=== PATIENT | male | born 1960 | race Caucasian/White ===

== ENCOUNTER 2020-03-08 14:52 | Inpatient (IN) | payer SELFPAY ==
[2020-03-08] VITALS (13 sets, daily range): BP systolic 80–136; BP diastolic 51–86; PULSE 68–99; TEMP 98.1–98.5
[~2020-03-08] VITALS: Ht 180.3 cm; Wt 176.9 kg
[2020-03-08] MEDS ORDERED: GLUCOTROL10 MG PO (17:27)
[2020-03-08] MEDS ORDERED: PRINZIDE 25 MG-1 TAB PO (17:28)
--- NOTE | 2020-03-08 17:55 | NUR ---
Patient arrived via EMS. Patient is alert and oriented, able to answer questions appropriately. Patient is able to transfer between streacher and bed with 2x assist. Called hospitalist to report that patient is in afib. Patient off floor to OR at 1755.
[2020-03-08 17:56] LABS: INR 1.5 (0.8-3.0); PROTHROMBIN TIME 17.8 SECONDS (9.7-12.8)
[2020-03-08 17:59] LABS: PARTIAL THROMBOPLASTIN TIME 36.1 SECONDS (26.0-37.0)
[2020-03-08 20:49] LABS: MAGNESIUM 1.7 mg/dL (1.6-2.3)
[2020-03-08 21:08] LABS: TROPONIN-I < 0.012 ng/mL (0.000-0.035)
[2020-03-09] VITALS (7 sets, daily range): BP systolic 82–113; BP diastolic 40–61; PULSE 53–116; TEMP 97.6–99.1
--- NOTE | 2020-03-09 04:19 | NUR ---
Patient to the room from PACU at 1940. Noted to continue to be hypotensive. Hopsitalist aware. Heart rate continues to be irregular, but stable. Dressing noted to left lower pannus with wet to dry dressing. Telemetry in place. Echo ordered for this morning. Delsem powder to groin per orders. Groin noted to be very escoriated. Patient noted to have pain a couple times throughout the night. First pain episode was to back, left abdomen, and headache. 2mg morphine given and this was effective. 2nd pain episode was to left abdomen and 2mg morphine was given. This was effective. Patient assisted with repositioning via 2 assist from staff. Will conitnue to monitor.
--- NOTE | 2020-03-09 04:25 | NUR ---
Heparin drip orders discussed with Elinor Izquierdo APRN. She is going to address this with Dr. Soni this morning.
[2020-03-09 06:17] LABS: BASO % 0.2 % (0.0-2.0); EOS # 0.1 (0.0-0.7); GRAN # 10.2 (1.4-6.5); LYMPH # 1.2 (1.2-3.4); LYMPH % 9.5 % (20.0-51.0); MEAN CELL VOLUME 86 fl (80.0-100.0); MEAN CORPUSCULAR HGB CONC 32 g/dl (33.0-37.0); MEAN PLATELET VOLUME 9.6 fl (7.4-10.4); MONO # 1.1 (0.1-0.6); MONO % 8.7 % (1.7-9.3); PLATELET COUNT 412 K/mm3 (130-400); RED BLOOD COUNT 3.41 M/mm3 (4.20-5.60); REDCELL DISTRIBUTION WIDTH-CV 13.7 % (11.5-14.5)
[2020-03-09 06:24] LABS: HEMATOCRIT 29.3 % (42.0-52.0); HEMOGLOBIN 9.3 g/dl (13.5-18.0); MEAN CORPUSCULAR HEMOGLOBIN 27 pg (27.0-31.0)
[2020-03-09 06:39] LABS: ALBUMIN 2.4 gm/dL (3.5-5.0); BILIRUBIN,TOTAL 0.4 mg/dL (0.0-1.0); CALCIUM 8.2 mg/dL (8.4-10.2); CREATININE, serum 1.54 (0.66-1.25); TOTAL PROTEIN 5.3 gm/dL (6.4-8.2)
[2020-03-09 07:12] LABS: C-REACTIVE PROTEIN 28.5 mg/dL (0.0-0.9)
--- NOTE | 2020-03-09 08:38 | NUR ---
Dr Reinoso notified of consult.
--- NOTE | 2020-03-09 11:02 | NUR ---
Dr Hinds here to see patient, dressing changed. Wound bed pink with granulation tissue noted. Scant amount of bloody drainage. Area around wound with blisters and clear drainage noted. Right great toe with diabetic ulcer noted. Wound bed pink with no drainage noted, dressed with gauze. No c/o at this time.
--- NOTE | 2020-03-09 11:44 | NUR ---
Heparin gtt initiated at this time at 23ml/hr. Hep XA due at 1745.
--- NOTE | 2020-03-09 11:50 | NUR ---
SW met with patient via the phone. Patient reports that he resides in [facility] and has two brothers that will help support him when he gets home. Patient shares that his emergency contact and DPJIGAR CELISlizabethcharisse his brother . Patient reports that he has transportation at home. Patient reports PCP Dr. Dillard at [facility]. Patient reports that he uses a Walker daily for mobility and denies any other DME. Declined home health supports. No additional concerns identified.
--- NOTE | 2020-03-09 14:06 | NUR ---
Dr Reinoso here to see patient.
[2020-03-10 03:21] VITALS: BP 93/49; PULSE 91; TEMP 98.1
--- NOTE | 2020-03-10 05:16 | NUR ---
Patient has rested well throughout the night. PRN pain medication given at beginning of the shift and this was effective. Dressing change to left pannus completed and patient tolerated this well. Heparin drip protocol followed and rate changes verified with FERNANDO Vasquez. At 0050 patient stated he just didn't feel right, that he ached all over and was lightheaded. BP: 96/62, P: 105, T: 99.1, O2: 93%. Blood sugar checked and noted to be 127. Guillermina Mcarthur APRN notified of concerns from patient. PRN Tylenol ordered and administered. Patient then fell back to sleep. At 0320, BP: 93/49, P: 91, T: 98.1, O2: 95%. Patient has had no further complaints of lightheadedness and not feeling right. Will continue to monitor patient.
[2020-03-10 07:12] LABS: BASO % 0.4 % (0.0-2.0); EOS # 0.2 (0.0-0.7); EOS % 1.5 % (0-4.0); GRAN # 8.7 (1.4-6.5); GRAN % 77.3 % (42.2-75.2); LYMPH # 1.1 (1.2-3.4); LYMPH % 9.4 % (20.0-51.0); MEAN CELL VOLUME 87 fl (80.0-100.0); MEAN CORPUSCULAR HGB CONC 31 g/dl (33.0-37.0); MEAN PLATELET VOLUME 10.2 fl (7.4-10.4); MONO # 1.2 (0.1-0.6); MONO % 10.6 % (1.7-9.3); PLATELET COUNT 463 K/mm3 (130-400); RED BLOOD COUNT 3.67 M/mm3 (4.20-5.60); REDCELL DISTRIBUTION WIDTH-CV 13.9 % (11.5-14.5)
[2020-03-10 07:15] LABS: HEMATOCRIT 31.8 % (42.0-52.0); HEMOGLOBIN 9.7 g/dl (13.5-18.0); MEAN CORPUSCULAR HEMOGLOBIN 26 pg (27.0-31.0)
[2020-03-10 07:18] LABS: CALCIUM 8.4 mg/dL (8.4-10.2); CREATININE, serum 1.41 (0.66-1.25); MAGNESIUM 2.3 mg/dL (1.6-2.3); POTASSIUM 4.4 mmol/L (3.4-5.0)
[2020-03-10 07:40] VITALS: BP 106/62; PULSE 90; TEMP 97.3
--- NOTE | 2020-03-10 08:18 | NUR ---
Patient alert and oriented, answers questions appropriately. See assessment. Patient c/o SOA, lungs clear in upper lobes, ex/inspiratory wheezes noted in bases. +wet sounding cough, which is new for patient. Patient states "I feel weak." Assisted x2 to bedside commode, increased SOA noted with exertion. Heparin gtt continues to infuse. LLQ with dressing in place. 2+ edema noted to BLE, 1+ edema noted to BUE. C/o mild pain to LLQ incision.
--- NOTE | 2020-03-10 09:10 | NUR ---
Dr Hinds here to see patient. Dressing to Q changed per Dr Hinds, wet to dry.
--- NOTE | 2020-03-10 11:01 | NUR ---
Dr Guy here to see patient.
[2020-03-10 11:27] VITALS: BP 85/54; PULSE 90; TEMP 97.7
--- NOTE | 2020-03-10 12:02 | NUR ---
Dr Guy notified of hypotension.
--- NOTE | 2020-03-10 13:37 | NUR ---
Dr Crespo notified of consult.
[2020-03-10 15:28] VITALS: BP 96/66; PULSE 89; TEMP 97.7
--- NOTE | 2020-03-10 16:37 | NUR ---
Hep XA 0.42. Continue Heparin gtt at 24ml/hr. Recheck Hep XA at 2030, 4.26.20.
--- NOTE | 2020-03-10 19:45 | NUR ---
C/O pain to left lower abdomen-rating pain 05/24-described as throbbing-norco given per dr mccoy
--- NOTE | 2020-03-10 20:00 | NUR ---
Report received. Assumed care for retail shift manager. Assessment complete. A&Ox3-drowsy. Plan of care discussed for this shift to include pain control/dressing change/calling for needs. Dressing to left lower oenftoa-yxi-rxzxy amount of drainage noted. Right great toe with tgjwnjop-VFB-bouyj tape. IV to left wrist with heparin@25mls/hr. Infusing without s/s of redness/drainage. Right wrist INT flushes without difficulty. Denies needs. Call light in reach. Will monitor.
[2020-03-10 20:04] VITALS: BP 101/62; PULSE 93; TEMP 99
--- NOTE | 2020-03-10 23:00 | NUR ---
Dressing to left lower abdomen changed-wet to dry with normal saline/kerlix-covered with ABDx2-no tape due to skin irritation from previous tape. Tolerated well.
[2020-03-11] VITALS (7 sets, daily range): BP systolic 90–123; BP diastolic 49–69; PULSE 66–114; TEMP 97.4–98.9
--- NOTE | 2020-03-11 02:00 | NUR ---
HepXa 0.38-no change per protocol. Order placed for next HepXa @ 0800
[2020-03-11 08:24] LABS: BASO % 0.3 % (0.0-2.0); CALCIUM 8.6 mg/dL (8.4-10.2); CREATININE, serum 1.39 (0.66-1.25); EOS # 0.3 (0.0-0.7); EOS % 2.6 % (0-4.0); GRAN # 8.4 (1.4-6.5); GRAN % 76.9 % (42.2-75.2); LYMPH # 0.8 (1.2-3.4); LYMPH % 7.3 % (20.0-51.0); MEAN CELL VOLUME 85 fl (80.0-100.0); MEAN CORPUSCULAR HGB CONC 31 g/dl (33.0-37.0); MEAN PLATELET VOLUME 9.9 fl (7.4-10.4); MONO # 1.3 (0.1-0.6); PLATELET COUNT 436 K/mm3 (130-400); POTASSIUM 4.5 mmol/L (3.4-5.0); RED BLOOD COUNT 3.65 M/mm3 (4.20-5.60); REDCELL DISTRIBUTION WIDTH-CV 13.9 % (11.5-14.5)
[2020-03-11 08:26] LABS: HEMATOCRIT 31.1 % (42.0-52.0); HEMOGLOBIN 9.7 g/dl (13.5-18.0); MEAN CORPUSCULAR HEMOGLOBIN 27 pg (27.0-31.0)
--- NOTE | 2020-03-11 11:57 | NUR ---
Rcvd report from FERNANDO Decker this AM. Pt's HepXa for 0800 is 0.40, no change is made to the Heparin titration. Pt is c/o pain in the ABD. Will continue to monitor. Pt pannus ulcer cleaned and repacked. No further concerns at this time.
--- NOTE | 2020-03-11 12:27 | NUR ---
First visit from the registration officer. No needs right now.
--- NOTE | 2020-03-11 16:05 | NUR ---
The patient is self-pay. MOLLY contacted Samreen Arce, financial counselor and she states they will assist the patient with a Medicaid application. MOLLY informed the patient. Post acute rehab is being recommended for the patient. MOLLY presented Medicare.gov's list of rehab facilities near [place]. MOLLY infom The patient would like to sent referrals to [facility], [facility] and [facility]. Awaiting responses.
--- NOTE | 2020-03-11 16:47 | NUR ---
RE-EDUCATED PATIENT ON OUR CPAP. PATIENT STATES HE UNDERSTANDS AND WILL WEAR IT TONIGH WITH2L BI.
--- NOTE | 2020-03-11 20:40 | NUR ---
Report received. Assumed care for hotel night auditor. Assessment complete. VS have remained stable. Is very drowsy and states "whatever medication they gave me earlier has made my mind crazy." Refusing scheduled dose of oxycodone. Falls asleep mid sentence-easily aroused-but states an hour after taking the Hydrocodone he started feeling terrible. Encouraged to inform staff if pain is high we could adjust medications. Verbalizes understanding. Plan of care discussed for dressing change later this shift. PICC to right upper arm flushes without difficulty. New bag of heparin hung-current rate 25mls/hr-2 nurse verification with FERNANDO Ward. IS at bedside and encouraged use. Call light in reach. Will monitor.
--- NOTE | 2020-03-11 21:50 | NUR ---
HepXa 0.00. Heparin bolus-10,000 units given IV per dr mccoy. Verified FERNANDO Ortez. Heparin high dose protocol initiated. Heparin infusing at 18ml/hr to PICC in right upper arm-red port.
--- NOTE | 2020-03-11 22:30 | NUR ---
Received call from Tele reporting A-fib with RVR HR of 140s-150s. This nurse to room-patient currently getting up to commode due to incontinence and needing bed change. Denies chest pain/nausea-states short of breath with activity which is baseline. Current vital signs 116/63, pulse 114, o2 sat 100 on 2L/NC and temp of 98.9. Assisted back to bed-heavy two assist.
[2020-03-12] VITALS (7 sets, daily range): BP systolic 81–123; BP diastolic 41–68; PULSE 69–91; TEMP 98–99.7
--- NOTE | 2020-03-12 03:50 | NUR ---
Wet to dry dressing change complete on ulcer to left lower abdomen. Area is hard to touch and discolored. Blisters noted on both sides of ulcer from previous tape usage. ABD secured under pannus. States pain is 8/10 to abdomen-refusing pain meds. Discussed that a new had been ordered he had not tried-willing to try oxycodone. Given per dr mccoy
--- NOTE | 2020-03-12 04:00 | NUR ---
HepXa 0.29. Heparin increased to 19ml/hr via right upper arm PICC, red port. Verified by FERNANDO Ward.
--- NOTE | 2020-03-12 07:35 | NUR ---
Report to FERNANDO Olivia
[2020-03-12 08:15] LABS: BASO % 0.3 % (0.0-2.0); EOS # 0.3 (0.0-0.7); EOS % 2.9 % (0-4.0); GRAN # 7.3 (1.4-6.5); GRAN % 74.6 % (42.2-75.2); LYMPH # 0.9 (1.2-3.4); LYMPH % 8.7 % (20.0-51.0); MEAN CELL VOLUME 86 fl (80.0-100.0); MEAN CORPUSCULAR HGB CONC 30 g/dl (33.0-37.0); MEAN PLATELET VOLUME 10.1 fl (7.4-10.4); MONO # 1.2 (0.1-0.6); MONO % 12.5 % (1.7-9.3); PLATELET COUNT 457 K/mm3 (130-400); RED BLOOD COUNT 3.73 M/mm3 (4.20-5.60); REDCELL DISTRIBUTION WIDTH-CV 13.9 % (11.5-14.5)
[2020-03-12 08:33] LABS: CALCIUM 8.6 mg/dL (8.4-10.2); CREATININE, serum 1.21 (0.66-1.25); POTASSIUM 4.6 mmol/L (3.4-5.0)
[2020-03-12 08:39] LABS: HEMATOCRIT 31.9 % (42.0-52.0); HEMOGLOBIN 9.7 g/dl (13.5-18.0); MEAN CORPUSCULAR HEMOGLOBIN 26 pg (27.0-31.0)
--- NOTE | 2020-03-12 10:25 | NUR ---
MOLLY faxed updates to [facility] ES[employer]IVEL and to [place] MOLLY. MOLLY attempted to contact Zeeshan with finance to inquire about the Medicaid application status. Will continue to follow.
--- NOTE | 2020-03-12 20:30 | NUR ---
Pt. laying in bed at this time. Pt. is A&OX3, assessment complete. PICC to rt. upperarm with Hep. GTT infusing per orders. Pt. denies pain. Wet to Dry dressing changed to Lt. lower abd. at this time. 1 roll of wet kerlex used and ABD pad. Pt. tolerated well. Pt. denies further needs at this time. Call light within reach.
[2020-03-13] VITALS (13 sets, daily range): BP systolic 75–130; BP diastolic 39–68; PULSE 50–86; TEMP 97.6–98.7
[2020-03-13 06:04] LABS: BASO % 0.2 % (0.0-2.0); EOS # 0.3 (0.0-0.7); EOS % 2.1 % (0-4.0); GRAN # 11.2 (1.4-6.5); GRAN % 85.1 % (42.2-75.2); LYMPH # 0.5 (1.2-3.4); LYMPH % 4.1 % (20.0-51.0); MEAN CELL VOLUME 86 fl (80.0-100.0); MEAN CORPUSCULAR HGB CONC 31 g/dl (33.0-37.0); MEAN PLATELET VOLUME 10.7 fl (7.4-10.4); MONO # 0.9 (0.1-0.6); MONO % 7.2 % (1.7-9.3); PLATELET COUNT 471 K/mm3 (130-400); RED BLOOD COUNT 3.68 M/mm3 (4.20-5.60)
[2020-03-13 06:05] LABS: HEMATOCRIT 31.5 % (42.0-52.0); HEMOGLOBIN 9.7 g/dl (13.5-18.0); MEAN CORPUSCULAR HEMOGLOBIN 26 pg (27.0-31.0)
[2020-03-13 06:18] LABS: CALCIUM 8.6 mg/dL (8.4-10.2); CREATININE, serum 1.34 (0.66-1.25); POTASSIUM 4.6 mmol/L (3.4-5.0)
[2020-03-14] VITALS (8 sets, daily range): BP systolic 76–103; BP diastolic 39–66; PULSE 65–79; TEMP 97.6–98.8
--- NOTE | 2020-03-14 01:46 | NUR ---
Patient up to the bedside commode x2 assist from staff. Bed mobility is difficult for him tonight. Utilizes walker for transfer. Abdominal incision noted to left side reaching almost to belly button. Old dressing removed with moderate amount of drainage noted. New dressing applied per orders. Patient tolerated this well and noted to only have pain when pannus is moved. Patient continues to have redness and moisture to groin. Powder applied per orders. When patient was up to the commode, this nurse noted that his back was very red and patient stated it burned and itched. The red rash is spread across his abdomen and chest and some on his right arm. Guillermina Mcarthur APRN notified about reaction and ordered Benadryl and held Vancomycin for now. Benadryl was helpful, but patient did call out at about 0130 and stated his back felt like it was burning. Cool pack applied to help with the burning sensation. HepXa at 2300 was 0.41. No change to heparin drip per protocol. Will continue to monitor patient.
[2020-03-14 06:10] LABS: BASO % 0.2 % (0.0-2.0); EOS # 0.4 (0.0-0.7); EOS % 2.1 % (0-4.0); GRAN # 15.9 (1.4-6.5); GRAN % 87.3 % (42.2-75.2); LYMPH # 0.6 (1.2-3.4); LYMPH % 3.5 % (20.0-51.0); MEAN CELL VOLUME 86 fl (80.0-100.0); MEAN CORPUSCULAR HGB CONC 31 g/dl (33.0-37.0); MONO % 5.6 % (1.7-9.3); PLATELET COUNT 383 K/mm3 (130-400); RED BLOOD COUNT 3.72 M/mm3 (4.20-5.60); REDCELL DISTRIBUTION WIDTH-CV 14.1 % (11.5-14.5)
[2020-03-14 06:14] LABS: HEMATOCRIT 31.9 % (42.0-52.0); HEMOGLOBIN 9.9 g/dl (13.5-18.0); MEAN CORPUSCULAR HEMOGLOBIN 27 pg (27.0-31.0)
[2020-03-14 06:25] LABS: CALCIUM 8.5 mg/dL (8.4-10.2); CREATININE, serum 1.45 (0.66-1.25); POTASSIUM 4.8 mmol/L (3.4-5.0)
--- NOTE | 2020-03-14 07:54 | NUR ---
Vancomycin Follow-up Pharmacy Note Current regimen: vancomycin 2g q12h Vancomycin trough: 26 Adjustments: decrease to vancomycin 1.5g q12h. start 18h after last dose. next trough 03/16 @ 1130.
--- NOTE | 2020-03-14 09:52 | NUR ---
SW faxed updates to [facility] and to [facility]. Will continue to monitor.
--- NOTE | 2020-03-14 11:00 | NUR ---
Patient transfered to room 342 from [facility].
--- NOTE | 2020-03-14 13:00 | NUR ---
Hepxa at 0.38, no change at this time.
--- NOTE | 2020-03-14 13:30 | NUR ---
Dressing change to pannus. Wet to dry with x2 kerlix rolls and abd over. Patietn states pain when removing and reapplying dressing. No further needs at this time.
--- NOTE | 2020-03-14 15:00 | NUR ---
Zeeshan with finance contacted MOLLY regarding the patient's Medicaid application. 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 The patient would like to discuss the application process with the family before preceeding. MOLLY contacted RUSSELL Arevalo Director and she states she will continue to follow. The patient has been having procedures and has not worked with PT/OT since Wednesday. MOLLY contacted [employer] to give update on the Medicaid application process, left message. MOLLY contacted [facility] to give update on the Medicaid application process, left message. Will continue to follow.
--- NOTE | 2020-03-14 19:12 | NUR ---
Patient has done well throughout the day. Up to bedside comode with x 2 assist. Antibiotics and heparin infusing per orders to JOSE Picc line. Denies further needs at this time. Will report off to mail machine operator.
--- NOTE | 2020-03-14 20:30 | NUR ---
PT IN BED. HS MEDS GIVEN AT THIS TIME. HAS PICC TO RIGHT UPPER ARM WITHOUT REDNESS OR SWELLING. IS ALERT AND ORIENTED X4. HAS LARGE DRSG TO LEFT ABD PANNUS, BILAT LOWER LEG SWELLING AND DRSG TO RIGHT GR TOE. HAS HEP GTT INFUSING AT 23CC/HR WITHOUT PROBLEM. TAKING SCHEDULED OXYCODONE 5MG PO.
--- NOTE | 2020-03-14 22:00 | NUR ---
DRSG CHANGED TO PANNUS WOUND. AFTER REMOVING OLD KERLIX FROM WOUND BED, PLACED NEW SALINE SOAKED KERLIX X2 ROLLS IN WOUND BED, COVERED WITH ABD'S. PT REPORTS PAINFUL AND SORE TO LEFT OUTER ABDOMEN, HAS SEVERAL TAPE BLISTERS. APPLIED DESINEX POWDER TO GROIN.
[2020-03-15 04:22] VITALS: BP 87/48; PULSE 77; TEMP 98
--- NOTE | 2020-03-15 04:25 | NUR ---
TAKES SCHEDULED PAIN MED AT THIS TIME. ALSO MEDICATED WITH IV BENADRYL FOR ITCHING ACROSS HIS BACK AND SHOULDERS.
--- NOTE | 2020-03-15 06:08 | NUR ---
complains of continued itching, refuses IV antibiotic at this time
[2020-03-15 06:39] LABS: MEAN CELL VOLUME 85 fl (80.0-100.0); MEAN CORPUSCULAR HGB CONC 32 g/dl (33.0-37.0); MEAN PLATELET VOLUME 10.2 fl (7.4-10.4); PLATELET COUNT 363 K/mm3 (130-400); RED BLOOD COUNT 3.38 M/mm3 (4.20-5.60); REDCELL DISTRIBUTION WIDTH-CV 14.2 % (11.5-14.5)
[2020-03-15 06:48] LABS: HEMATOCRIT 28.7 % (42.0-52.0); HEMOGLOBIN 9.1 g/dl (13.5-18.0); MEAN CORPUSCULAR HEMOGLOBIN 27 pg (27.0-31.0)
[2020-03-15 06:53] LABS: CALCIUM 8.5 mg/dL (8.4-10.2); CREATININE, serum 1.44 (0.66-1.25); POTASSIUM 4.8 mmol/L (3.4-5.0)
[2020-03-15 07:51] LABS: BAND 10 % (0-10); BASOPHIL 1 % (0-2); EOSINOPHIL 2 % (0-4); LYMPHOCYTE 5 % (20.0-51.0); NEUTROPHILS 78 % (42.0-75.2); PLATELET ESTIMATE NORMAL (NORMAL)
--- NOTE | 2020-03-15 07:59 | NUR ---
Patient states he is having lower back pain, tylenol given per orders. States he has been feeling itchy and refused his morning dose of antibiotic due to this. Refuses breakfast this AM, denies nausea or abd pain, stating he just doesn't feel good. Assessment complete. Abd dressing with serous drainage present. Discoloration noted to BLE. Edema +1. Scabbing to right great toe, patient states from previous ulcer. Heparin infusing per orders to right upper arm PICC line at 23 ml/hr. Denies further needs at this time.
[2020-03-15 08:00] VITALS: BP 92/46; PULSE 68; TEMP 97.8
--- NOTE | 2020-03-15 11:14 | NUR ---
Samreen with finance contacted MOLLY. She reports the patient does qualify for a financial assistance application. She mailed a form and a form was also provided for the patient in his room. Will continue to monitor.
--- NOTE | 2020-03-15 12:00 | NUR ---
Patient up to commode, x 1 assist, steady gait. Bed bath provided, Desenex powder applied underneath pannus and skin folds.
[2020-03-15 12:40] VITALS: BP 101/52; PULSE 64; TEMP 97.9
--- NOTE | 2020-03-15 14:00 | NUR ---
Dressing to pannus, wet to dry dressing applied with kerlix x2 and abd pads. Paper tape applied due to skin breakdown from foam tape.
[2020-03-15 16:55] VITALS: BP 98/63; PULSE 63; TEMP 97.5
[2020-03-15 19:12] VITALS: BP 96/52; PULSE 72; TEMP 98.4
--- NOTE | 2020-03-15 19:30 | NUR ---
Patient has done well throughout the day. Has been up to wheelchair throughout the day. Has ambulated x 1 assist to restroom for comode. Redressed pannus at this time. Denies further needs at this time. Reported off to hourly shift.
--- NOTE | 2020-03-15 19:45 | NUR ---
Patient assessed at this time. Alert and oriented x 4, and able to make needs known. Reports level 8 pain to abdomen. Given scheduled Roxicodone per orders. Double lumen PICC to NICOLÁS. Heparin drip running per orders. Dressing to area CDI. Wrapped with JONO wrap. Denies having SOB and dyspnea. On oxygen at 2 L/min via NC. Respirations even and unlabored. LS CTA in upper lobes, diminished in lower. HRR. Telemetry in place. Capillary refill less than 3 seconds. Non-tenting skin turgor. 2+ edema BLE. Sacrum/coccyx red. Redness under abdominal/groin folds. Dressing to I&D site to left lower abdomen changed. Dressing CDI. Ulcer to right great toe open to air, and dry. Skaling/flaking to bilateral feet. Socks taken off to get air to feet. Voices no questions, needs, or concerns at this time. Resting in bed with call light within reach.
--- NOTE | 2020-03-15 22:33 | NUR ---
PT HAD RT DEPT CPAP IN ROOM AND HAS REFUSED TO USE CPAP. CPAP WAS REMOVED FROM ROOM ANOTHER PATIENT WAS REQUIRING CPAP AND WE HAVE NO OTHERS AVAILABLE
[2020-03-15 23:10] VITALS: BP 90/45; PULSE 56; TEMP 98.3
[2020-03-16 03:19] VITALS: BP 86/51; PULSE 77; TEMP 97.7
--- NOTE | 2020-03-16 06:03 | NUR ---
Patient has been resting in bed. Has received scheduled Roxicodone per orders, which patient reports is effective. Patient given PRN Benadryl once during the night for itching to back. Voices no questions, needs, or concerns at this time. Resting in bed with call light within reach.
[2020-03-16 07:15] LABS: MEAN CELL VOLUME 85 fl (80.0-100.0); MEAN CORPUSCULAR HGB CONC 31 g/dl (33.0-37.0); MEAN PLATELET VOLUME 9.9 fl (7.4-10.4); PLATELET COUNT 362 K/mm3 (130-400); RED BLOOD COUNT 3.54 M/mm3 (4.20-5.60); REDCELL DISTRIBUTION WIDTH-CV 14.2 % (11.5-14.5)
[2020-03-16 07:22] LABS: HEMATOCRIT 30.2 % (42.0-52.0); HEMOGLOBIN 9.3 g/dl (13.5-18.0); MEAN CORPUSCULAR HEMOGLOBIN 26 pg (27.0-31.0)
[2020-03-16 07:48] LABS: CALCIUM 8.7 mg/dL (8.4-10.2); CREATININE, serum 1.21 (0.66-1.25); POTASSIUM 4.6 mmol/L (3.4-5.0)
--- NOTE | 2020-03-16 08:22 | NUR ---
Lying in bed with eyes open. Denies pain when lying still and abd not being touched. Dressing to abd pannus CDI. When pannus is lifted up there is redness and open areas noted. Patient does have pain when pannus is lifted. 1+ bilat LE edema noted. Diabetic ulcer noted to right great toe. Brown skin discoloration noted to bilat LE.
[2020-03-16 08:37] VITALS: BP 85/55; PULSE 68; TEMP 97.6
[2020-03-16 10:24] LABS: BAND 2 % (0-10); EOSINOPHIL 2 % (0-4); LYMPHOCYTE 9 % (20.0-51.0); NEUTROPHILS 84 % (42.0-75.2); PLATELET ESTIMATE NORMAL (NORMAL)
--- NOTE | 2020-03-16 10:45 | NUR ---
Dressing change performed to pannus. Removed two abd pads and two kerlix from previous dressing. Inner wound bed pink and moist, no bleeding noted. Skin surrounding wound is edematous, red, and painful whenn touched or moved. Irrigated site with NS. Inserted two kerlix soaked with NS. Applied two abd pads over top of site. Reinforced with paper tape. Desenex powder applied under pannus. Patient assisted into comfortable position in bed. Denies further needs at this time.
[2020-03-16 12:05] VITALS: BP 112/56; PULSE 72; TEMP 98.4
[2020-03-16 16:35] VITALS: BP 104/58; PULSE 81; TEMP 98.7
--- NOTE | 2020-03-16 17:50 | NUR ---
Sitting up in bed with eyes open. Patient says that he may be going back in for surgery tomorrow to have the area of his pannus debrided again. Patient explains that he is tired and wishes this would all get better. Reassurance provided. Patient denies further needs at this time.
--- NOTE | 2020-03-16 18:15 | NUR ---
Reviewed consent for possible I&D tomorrow with the patient. Questions answered. Patient signs consent. Consent placed on chart.
[2020-03-16 19:26] VITALS: BP 93/56; PULSE 73; TEMP 97
--- NOTE | 2020-03-16 20:45 | NUR ---
Pt. laying in bed at this time. Pt. is A&OX3, assessment complete. PICC to rt. upper arm with Heparin GTT running per orders at this time. Dressing to diego CDI, pt. has refused to have dressing changed again this evening. Pt. reported that they changed it this afternoon after he had been up. Pt. reports pain at a 3 on pain scale, will give scheduled pain medication per orders. Pt. denies further needs, call light within reach.
[2020-03-16 23:22] VITALS: BP 96/64; PULSE 93; TEMP 97.5
[2020-03-17] VITALS (11 sets, daily range): BP systolic 95–116; BP diastolic 41–60; PULSE 65–94; TEMP 97.6–98.3
--- NOTE | 2020-03-17 02:00 | NUR ---
Heparin Gtt stopped at this time for surgery in am.
[2020-03-17 05:36] LABS: MEAN CELL VOLUME 85 fl (80.0-100.0); MEAN CORPUSCULAR HGB CONC 31 g/dl (33.0-37.0); MEAN PLATELET VOLUME 9.9 fl (7.4-10.4); PLATELET COUNT 328 K/mm3 (130-400); RED BLOOD COUNT 3.54 M/mm3 (4.20-5.60); REDCELL DISTRIBUTION WIDTH-CV 14.2 % (11.5-14.5)
[2020-03-17 05:41] LABS: HEMATOCRIT 30.1 % (42.0-52.0); HEMOGLOBIN 9.2 g/dl (13.5-18.0); MEAN CORPUSCULAR HEMOGLOBIN 26 pg (27.0-31.0)
[2020-03-17 05:53] LABS: CALCIUM 8.7 mg/dL (8.4-10.2); MAGNESIUM 1.9 mg/dL (1.6-2.3); POTASSIUM 4.7 mmol/L (3.4-5.0)
[2020-03-17 05:54] LABS: CREATININE, serum 1.1 (0.66-1.25)
[2020-03-17 06:04] LABS: EOSINOPHIL 3 % (0-4); LYMPHOCYTE 9 % (20.0-51.0); METAMYELOCYTE 3 % (0-0); NEUTROPHILS 79 % (42.0-75.2); PLATELET ESTIMATE NORMAL (NORMAL)
--- NOTE | 2020-03-17 07:15 | NUR ---
Lying in bed with eyes open. Just got done rolling around in the bed and is having pain all over. Patient is tearful. Reassurance provided. FERNANDO Rascon, administered pain medication. Patient is on oxygen at 2L/NC. Dressing to abdominal pannus in place covered with theodora wrap. Patient anticipating surgery today around 1000. Consent has been signed and is on chart. Patient denies any questions. Pannus folds red and tender to touch. Desenex powder was applied to area. Lower extremities with brown skin discoloration. Diabetic ulcer to right great toe that is open to air. Patient denies needs at this time.
--- NOTE | 2020-03-17 09:15 | NUR ---
Patient to surgery via bed at this time.
--- NOTE | 2020-03-17 12:12 | NUR ---
Patient to room from PACU. Alert and oriented. Denies pain at this time. Large ABD dressing to lower abd intact, light pink drainage noted through the dressing. Patient provided with water at this time. Denies further needs.
--- NOTE | 2020-03-17 15:12 | NUR ---
SW was contacted by patients nurse who indicated that patient was exhibiting some depressed symptoms due to concern about extended hospital stay and finances. 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 per notes history patient was provided with a fiancnail application, and patient has been referred for additional services with [facility], [place], and [facility]. Sw stopped by to speak with Patient, Validated his concerns and listened to his fears. We discussed ways to occupy Patients mind by deep breathing or imagining how he feels when tending to his farm. Sw spoke with nurse about perhaps getting the patient a book to read, or something to occupy his mind for awhile. SW will continue to follow up.
--- NOTE | 2020-03-17 15:37 | NUR ---
Lying in bed with eyes open. Rates pain in abd 5-6/10. Roxicodone was administered by FERNANDO Rosales. 16 icelandic crawley catheter inserted using sterile technique by FERNANDO Toribio. Prior to insertion pericare was provider. Balloon inflated with 10mL saline. Receive clear yellow urine into crawley bag. Patient tolerates procedure well. Patient is tearful regarding health condition and finances. Reassurance provided. Patient denies further needs at this time.
--- NOTE | 2020-03-17 16:34 | NUR ---
Lying in bed with eyes closed. Respirations even and unlabored. No signs or symptoms of discomfort noted. Florian remains patent to dependent drainage draining clear yellow urine.
--- NOTE | 2020-03-17 18:18 | NUR ---
Lying in bed with eyes closed. Opens eyes when enter room. Says that he is feeling okay at this time. Heparin drip at 23mL/hr infusing through PICC in right upper arm. Florian remains to dependent drainage draining clear yellow urine. Patient denies further needs at this time.
--- NOTE | 2020-03-17 20:00 | NUR ---
At time of assessment, patient is awake in bed. He is alert and oriented, heart sounds normal/regular, lungs clear. He does not complain of pain. Edema is present in bilat lower extremities, in addition to purple discoloration which the patient states has been present since before this hospitalization. 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 Adbominal wound is covered with dressing which is clean, dry and intact. Will continue to monitor.
--- NOTE | 2020-03-17 22:04 | NUR ---
03/17/20 2100 HepXa result 3.7. No change made to heparin dose. Heparin is still running at 23 ml/hr. Will continue to monitor.
--- NOTE | 2020-03-18 | NUR ---
Abdominal wound dressing change complete at this time. After I&D yesterday afternoon, wound is 41" long X 18" tall X 8" deep. Wound has no odor. Kerlix drenched in sterile water is used to pack the wound and ABD and theodora bandage is used to secure the dressing. Will continue to monitor.
[2020-03-18 01:34] VITALS: BP 111/63; PULSE 67; TEMP 98
--- NOTE | 2020-03-18 03:38 | NUR ---
HepXa result 0.27. Heparin rate changed from 23 to 24 ml/hr per protocol. Next draw at 0900 this morning.
[2020-03-18 04:32] VITALS: BP 98/46; PULSE 81; TEMP 98.5
--- NOTE | 2020-03-18 04:49 | NUR ---
Patient has had an uneventful night. He has slept throughout most of the night with little complaints. His abdominal dressing was changed once at 2100. No concerns at this time. Will continue to monitor.
[2020-03-18 06:13] LABS: CALCIUM 8.3 mg/dL (8.4-10.2); CREATININE, serum 1.32 (0.66-1.25); POTASSIUM 4.8 mmol/L (3.4-5.0)
[2020-03-18 06:15] LABS: MEAN CELL VOLUME 86 fl (80.0-100.0); MEAN CORPUSCULAR HGB CONC 30 g/dl (33.0-37.0); MEAN PLATELET VOLUME 10.1 fl (7.4-10.4); PLATELET COUNT 294 K/mm3 (130-400); RED BLOOD COUNT 3.26 M/mm3 (4.20-5.60); REDCELL DISTRIBUTION WIDTH-CV 14.5 % (11.5-14.5)
[2020-03-18 06:21] LABS: HEMATOCRIT 28.1 % (42.0-52.0); HEMOGLOBIN 8.5 g/dl (13.5-18.0); MEAN CORPUSCULAR HEMOGLOBIN 26 pg (27.0-31.0)
[2020-03-18 07:25] LABS: BAND 11 % (0-10); LYMPHOCYTE 10 % (20.0-51.0); METAMYELOCYTE 4 % (0-0); NEUTROPHILS 70 % (42.0-75.2); PLATELET ESTIMATE NORMAL (NORMAL)
[2020-03-18 07:26] LABS: HYPOCHROMIA 2+
[2020-03-18 07:58] VITALS: BP 119/55; PULSE 83; TEMP 98.5
--- NOTE | 2020-03-18 08:00 | NUR ---
Patient in bed resting. Alert and oriented x3. Assessment complete. Dressing to abdomen is CDI, abd pads and acewrap. PICC line to JOSE without complications, Heparin infusing per orders. Discoloration noted to BLE. States he is feeling a little better today. Denies further needs at this time.
--- NOTE | 2020-03-18 09:00 | NUR ---
PICC intact right upper arm. With sterile technique right upper arm PICC dressing change done with insertion site cleansed with ChloraPrep 1, chlorhexidine impregnated disc applied, skin prep, StatLock, and Tegaderm applied. No signs or symptoms IV complications noted. No concerns voiced. Arm wrapped with Cortes to protect catheter.
--- NOTE | 2020-03-18 09:45 | NUR ---
Hep xa at 0.61, no change at this time. At 24ml/hr. Recheck at 1500.
--- NOTE | 2020-03-18 10:45 | NUR ---
Hospitalist and team in to see patient.
[2020-03-18 11:51] VITALS: BP 125/72; PULSE 76; TEMP 98.9
--- NOTE | 2020-03-18 15:37 | NUR ---
Hepxa at 0.60, no change at this time.
--- NOTE | 2020-03-18 16:37 | NUR ---
The patient is to be transferred to [facility] in [place] for further care.
[2020-03-18 17:06] VITALS: BP 130/69; PULSE 82; TEMP 98.7
[2020-03-18 19:14] VITALS: BP 130/69; PULSE 82; TEMP 98.7
--- NOTE | 2020-03-18 19:26 | NUR ---
Patient transfering to [place]. Report called to burn unit at [place]. Heparin continues infusing per orders. Patient denies further needs at this time. Patient transfering via EMS.
== END 2020-03-18 19:26 | disposition short-term general hospital (02) | DRG 853 ==
LOC: MEDICAL 14:52 → SURG 03-14 11:03
PROVIDERS: Internal Medicine Cardiovascular Disease; Physician Assistant; Surgery; ADMIT Family Medicine
PROC: 0JB80ZZ Excision of Abdomen Subcutaneous Tissue and Fascia, Open Approach (ICD-10-PCS; principal; 2020-03-08 18:00)
PROC: 02HV33Z Insertion of Infusion Device into Superior Vena Cava, Percutaneous Approach (ICD-10-PCS; 2020-03-11)
PROC: 0JB80ZZ Excision of Abdomen Subcutaneous Tissue and Fascia, Open Approach (ICD-10-PCS; 2020-03-17)
DX: A41.89 Other specified sepsis (principal); I50.23 Acute on chronic systolic (congestive) heart failure; I13.0 Hypertensive heart and chronic kidney disease with heart failure and stage 1 through stage 4 chronic kidney disease, or unspecified chronic kidney disease; Z68.43 Body mass index [BMI] 50.0-59.9, adult; N18.9 Chronic kidney disease, unspecified; E11.22 Type 2 diabetes mellitus with diabetic chronic kidney disease; D64.9 Anemia, unspecified; M79.3 Panniculitis, unspecified; E66.01 Morbid (severe) obesity due to excess calories; E11.621 Type 2 diabetes mellitus with foot ulcer; L30.4 Erythema intertrigo; D47.3 Essential (hemorrhagic) thrombocythemia; I48.0 Paroxysmal atrial fibrillation; I95.9 Hypotension, unspecified; R44.1 Visual hallucinations; R41.0 Disorientation, unspecified; R09.02 Hypoxemia; F32.9 Major depressive disorder, single episode, unspecified; R21 Rash and other nonspecific skin eruption; T36.8X5A Adverse effect of other systemic antibiotics, initial encounter; L08.9 Local infection of the skin and subcutaneous tissue, unspecified; Z79.4 Long term (current) use of insulin
CPT/HCPCS: 99222-AI; 99231-AI; 99232-AI; 99233-AI; 99239; A9500; C1751; J0330; J0878; J1160; J1200; J1644; J1815; J1940; J2185; J2270; J2370; J2405; J2704; J3010; J3370; J3475; J7030; J7040; J7050; Q9967